=== PATIENT | male | born 1980 | race Two or more races ===

== ENCOUNTER 2024-07-24 11:15 | Emergency (ER) | payer OTHER ==
[~2024-07-24] VITALS: Ht 180.3 cm; Wt 89.3 kg
[2024-07-24 11:45] VITALS: BP 150/88; PULSE 99; RESP 16; TEMP 98.9; O2SAT 97
[2024-07-24] MEDS: TETANUS-DIPTH-ACEL PERTUSSIS 0.5ML SYR Tdap IM ONE (12:43)
[2024-07-24] MEDS: IBUPROFEN 800 MG TAB PO ONE (12:48)
[2024-07-24] MEDS ORDERED: AMOX500T86 PO (12:50)
[2024-07-24] MEDS ORDERED: NAPR-746 PO (12:50)
== END 2024-07-24 13:14 | disposition home or self-care (01) ==
LOC: ER 11:23
DX: S51.812A Laceration without foreign body of left forearm, initial encounter (principal); S51.852A Open bite of left forearm, initial encounter; W54.0XXA Bitten by dog, initial encounter; Y93.89 Activity, other specified; Y92.69 Other specified industrial and construction area as the place of occurrence of the external cause; Y99.8 Other external cause status
CPT/HCPCS: 12002; 90471; 90715